=== PATIENT | female | born 1975 | race Caucasian/White ===

== ENCOUNTER 2020-11-12 08:40 | Outpatient (CLI) | payer OTHER | END 2020-11-12 15:00 | disposition home or self-care (01) | LOC: LAB 08:40 | PROVIDERS: ATTEND Emergency Medicine Pediatric Emergency Medicine | DX: Z03.818 Encounter for observation for suspected exposure to other biological agents ruled out (principal) ==

== ENCOUNTER 2020-11-20 08:03 | Outpatient (CLI) | payer OTHER | END 2020-11-20 15:00 | disposition home or self-care (01) | LOC: LAB 08:03 | PROVIDERS: ATTEND Emergency Medicine Pediatric Emergency Medicine | DX: U07.1 COVID-19 (principal) ==

== ENCOUNTER 2021-02-20 08:00 | Outpatient (CLI) | payer OTHER | END 2021-02-20 08:30 | disposition home or self-care (01) | LOC: PPH VACUNA 08:00 | PROVIDERS: ATTEND Emergency Medicine Pediatric Emergency Medicine | DX: Z23 Encounter for immunization (principal) ==

== ENCOUNTER 2021-08-10 07:58 | Outpatient (CLI) | payer OTHER | END 2021-08-10 15:00 | disposition home or self-care (01) | LOC: LAB 07:58 | DX: U07.1 COVID-19 (principal) ==

== ENCOUNTER 2021-11-16 09:48 | Outpatient (CLI) | payer OTHER | END 2021-11-16 10:00 | disposition home or self-care (01) | LOC: LAB 09:48 | PROVIDERS: ATTEND Emergency Medicine Pediatric Emergency Medicine | DX: Z20.828 Contact with and (suspected) exposure to other viral communicable diseases (principal); Z20.818 Contact with and (suspected) exposure to other bacterial communicable diseases ==

== ENCOUNTER 2021-11-23 08:22 | Outpatient (CLI) | payer OTHER | END 2021-11-23 15:00 | disposition home or self-care (01) | LOC: LAB 08:22 | PROVIDERS: ATTEND Emergency Medicine Pediatric Emergency Medicine | DX: Z20.828 Contact with and (suspected) exposure to other viral communicable diseases (principal); Z20.818 Contact with and (suspected) exposure to other bacterial communicable diseases ==

== ENCOUNTER 2021-12-23 08:00 | Outpatient (CLI) | payer OTHER | END 2021-12-23 08:05 | disposition home or self-care (01) | LOC: PPH VACUNA 08:00 | PROVIDERS: ATTEND Emergency Medicine Pediatric Emergency Medicine | DX: Z23 Encounter for immunization (principal) ==